=== PATIENT | female | born 2000 | race Caucasian/White ===

== ENCOUNTER 2020-12-07 14:04 | Day surgery (SDC) | payer OTHER ==
[~2020-12-07 14:04] MED LIST: ACETAMINOPHEN *IV* 1,000 MG IV ONE; LIDOCAINE 1% MDV 20ML VIAL SQ PRN; SCOPOLAMINE 1MG TRANSDERMAL PATCH TOP ONE; SCOPOLAMINE 1MG TRANSDERMAL PATCH TOP SCH
[2020-12-07] MEDS ORDERED: propofoL 200 MG/20 ML VIAL As Ordered ONE (14:21)
[2020-12-07] MEDS ORDERED: LIDOCAINE 2% 100MG/5ML SDV (FOR ANES.) As Ordered ONE (14:21)
[2020-12-07] MEDS ORDERED: fentaNYL 250 MCG/5 ML INJECTION (J3010) As Ordered ONE (14:21)
[2020-12-07] MEDS ORDERED: ROCURONIUM BROMIDE 50 MG/5 ML VIAL As Ordered ONE (14:21)
[2020-12-07] MEDS ORDERED: MIDAZOLAM INJ 2MG/2ML VIAL (J2250 PER 1MG) As Ordered ONE (14:22)
[2020-12-07] MEDS ORDERED: PROZ10CA7 PO (14:25)
[2020-12-07] MEDS ORDERED: VITMTA PO (14:25)
[2020-12-07 14:56] LABS: HEMATOCRIT 38.1 % (36.0-47.0); MEAN CORPUSCULAR HGB CONC 34.1 g/dl (32.0-36.5); PLATELET COUNT, AUTOMATED 258 10^3/uL (150-450); RED BLOOD COUNT 4.48 10^6/uL (4.00-5.40); WHITE BLOOD COUNT 6.9 10^3/uL (4.0-10.0)
[2020-12-07] MEDS ORDERED: LR 1,000 ML IV ONE (15:05)
[2020-12-07 15:22] LABS: BLOOD UREA NITROGEN 12 MG/DL (7-18); CALCIUM LEVEL 8.9 MG/DL (8.5-10.1); CARBON DIOXIDE LEVEL 29 MEQ/L (21-32); CHLORIDE LEVEL 106 MEQ/L (98-107); CREATININE FOR GFR 0.68 MG/DL (0.55-1.30); GLOMERULAR FILTRATION RATE > 60.0 (>60); GLUCOSE, FASTING 83 MG/DL (70-100); POTASSIUM SERUM 3.7 MEQ/L (3.5-5.1); SODIUM LEVEL 140 MEQ/L (136-145)
[2020-12-07] MEDS ORDERED: BUPIVACAINE HCL 0.25% 10ML VIAL As Ordered ONE (15:40)
[2020-12-07] MEDS ORDERED: ONDANSETRON 4MG/2ML VIAL As Ordered ONE (16:34)
[2020-12-07] MEDS ORDERED: ePHEDrine SULFATE 25 MG/5 ML(5MG/ML) SYRINGE As Ordered ONE (16:34)
[2020-12-07] MEDS ORDERED: METOCLOPRAMIDE INJ 10MG/2ML VIAL (J2765 PER 1) As Ordered ONE (16:34)
[2020-12-07] MEDS ORDERED: KETOROLAC 60MG 2ML VIAL As Ordered ONE (16:34)
[2020-12-07] MEDS ORDERED: dexameTHASONE 4 MG/ML 1ML VIAL (J1100 PER 1MG) As Ordered ONE (16:35)
[2020-12-07] MEDS ORDERED: SUGAMMADEX SODIUM 500 MG/5 ML VIAL (BRIDION) As Ordered ONE (16:37)
[2020-12-07] MEDS ORDERED: ACETAMINOPHEN 1000MG 100ML IV BTL (OFIRMEV) (J0131 PER 10MG) As Ordered ONE (16:39)
[2020-12-07] MEDS ORDERED: ONDANSETRON 4MG/2ML VIAL IV PRN (17:45)
[2020-12-07] MEDS ORDERED: LR 1,000 ML IV SCH (17:45)
[2020-12-07] MEDS ORDERED: oxyCODONE 5MG TAB PO PRN ×2 (17:45→17:50)
[2020-12-07] MEDS ORDERED: HYDROMORPHONE HCL 0.5 MG/ 0.5 ML SYRINGE (J1170 PER 1) IV PRN (17:45)
[2020-12-07] MEDS ORDERED: METOCLOPRAMIDE INJ 10MG/2ML VIAL (J2765 PER 1) IV PRN (17:45)
[2020-12-07] MEDS ORDERED: fentaNYL 100 MCG/2 ML INJECTION (J3010) IV PRN (17:45)
[2020-12-07] MEDS ORDERED: ACETAMINOPHEN 500 MG TAB PO SCH (18:00)
--- NOTE | 2020-12-07 18:10 | ROOPDOC ---
[facility] Report Of Operation Report of Operation DATE OF PROCEDURE: 12/07/20 PREPROCEDURE DIAGNOSES: suspected intermittent ovarian torsion POSTPROCEDURE DIAGNOSES: ruptured left hemorrhagic ovarian cyst, hemoperitoneum, suspected endometriosis, abdominal adhesive disease PROCEDURE PERFORMED: laparoscopic evacuation of hemoperitoneum, peritoneal biopsy SURGEON: Jose Silva DO LOG GETTER: Chiquis Buck DO ANESTHESIA: general ESTIMATED BLOOD LOSS: Approximately 20 mL. COMPLICATIONS: none REMARKS: none FINDINGS: left ruptured hemorrhagic ovarian cyst, approx 20cc of hemoperitoneum, suspected stage 1 endometriosis, abdominal adhesive disease SPECIMENS REMOVED: peritoneal biopsy PROCEDURE NOTE: The risks, benefits, and alternatives of the procedure were discussed and written consent obtained. IV tylenol and a scopolamine patch were administered pre-op. The patient was taken to the OR where she underwent general anesthesia. She was positioned in low lithotomy with her arms tucked. The abdomen and vagina were prepped and draped in a sterile fashion. A calvillo was placed in the bladder. A final time out was performed. A moistened sponge stick was placed in the vagina for uterine manipulation. 0.25% marcaine was injected into the infraumbilical fold and a 5mm incision was made. A 5mm port was placed via the direct technique. The opening pressure was 5 mmHg and there was no trauma below the entry site. An anatomy survey was performed; there was adhesions from the right and left sigmoid and appendix to the abdominal side wall. The appendix did not appear inflamed. The left ovary had a ruptured hemorrhagic cyst, the right ovary and bilateral fallopian tubes appeared normal. There was approx 20cc of hemoperitoneum which was evacuated. The uterus appeared normal. The posterior cul-de-sac and uterosacral ligaments had erythematous speckling suspicious for endometriosis. The area 2cm superior and medial to the bilateral ASISs were identified via transillumination and via direct visualization. 0.25% marcaine was injected and 5mm incisions made. 5mm ports were placed under direct visualization. A biopsy of the peritoneum was taken adjacent to the right uterosacral ligament and was hemostatic. The lower quadrant port sites were removed under direct visualization and the pneumoperitoneum was released. The remaining port was removed. The port sites were reapproximated with 3-0 monocryl and secured with dermabond. The calvillo and vaginal manipulator were removed. The sponge, lap, and needle counts were correct x2. There were no complications. The patient tolerated the procedure well. JOSE SILVA DO Dec 07, 2020 18:10
[2020-12-07 19:40] VITALS: BP 116/57
[2020-12-08] MEDS ORDERED: IBUPROFEN 800 MG TAB PO SCH
== END 2020-12-07 19:40 | disposition home or self-care (01) ==
LOC: M SDC 14:04 → EDBD 14:04 → M SDC 19:40
PROVIDERS: ATTEND Obstetrics & Gynecology
DX: N80.0 Endometriosis of uterus (principal); N83.202 Unspecified ovarian cyst, left side; K66.1 Hemoperitoneum; K66.0 Peritoneal adhesions (postprocedural) (postinfection); F32.9 Major depressive disorder, single episode, unspecified; Z79.899 Other long term (current) drug therapy
CPT/HCPCS: 36415; 49321; 49322; 80048; 81025; 85027; 86850; 86900; 86901; 88305; J0131; J1100; J1885; J2250; J2405; J2765; J3010; U0002

== ENCOUNTER 2020-12-29 19:45 | Emergency (ER) | payer OTHER ==
[~2020-12-29] VITALS: Ht 162.6 cm; Wt 63.6 kg
[~2020-12-29 19:45] MED LIST changes: -ACETAMINOPHEN *IV* 1,000 MG IV ONE; -LIDOCAINE 1% MDV 20ML VIAL SQ PRN; +PROZ10CA7 PO; -SCOPOLAMINE 1MG TRANSDERMAL PATCH TOP ONE; -SCOPOLAMINE 1MG TRANSDERMAL PATCH TOP SCH; +VITMTA PO
[2020-12-29 21:06] LABS: HEMATOCRIT 37.4 % (36.0-47.0); HEMOGLOBIN 12.9 g/dl (12.0-15.5); MEAN CORPUSCULAR HEMOGLOBIN 29.5 pg (27.0-33.0); MEAN CORPUSCULAR HGB CONC 34.5 g/dl (32.0-36.5); MEAN CORPUSCULAR VOLUME 85.4 fl (80.0-96.0); PLATELET COUNT, AUTOMATED 261 10^3/uL (150-450); RED BLOOD COUNT 4.38 10^6/uL (4.00-5.40); WHITE BLOOD COUNT 7.5 10^3/uL (4.0-10.0)
[2020-12-29 21:30] LABS: AMPHETAMINES LEVEL URINE NEGATIVE (NEGATIVE); BARBITURATES URINE NEGATIVE (NEGATIVE); BENZODIAZEPINES URINE NEGATIVE (NEGATIVE); CANNABINOIDS URINE NEGATIVE (NEGATIVE); COCAINE METABOLITE URINE NEGATIVE (NEGATIVE); METHADONE URINE NEGATIVE (NEGATIVE); OPIATES URINE NEGATIVE (NEGATIVE); PHENCYCLIDINE URINE NEGATIVE (NEGATIVE)
[2020-12-29 21:41] LABS: ACETAMINOPHEN LEVEL < 2.0 UG/ML (10.0-30.0); ALBUMIN 4.2 GM/DL (3.2-5.2); ALT/SGPT 17 U/L (12-78); BILIRUBIN,DIRECT 0.1 MG/DL (0.0-0.2); BILIRUBIN,TOTAL 0.4 MG/DL (0.2-1.0); BLOOD UREA NITROGEN 11 MG/DL (7-18); CALCIUM LEVEL 8.8 MG/DL (8.5-10.1); CARBON DIOXIDE LEVEL 26 MEQ/L (21-32); CHLORIDE LEVEL 108 MEQ/L (98-107); CREATININE FOR GFR 0.71 MG/DL (0.55-1.30); ETHYL ALCOHOL (ETHANOL) < 0.003 % (0.000-0.010); GLOMERULAR FILTRATION RATE > 60.0 (>60); GLUCOSE, FASTING 83 MG/DL (70-100); POTASSIUM SERUM 3.7 MEQ/L (3.5-5.1); SALICYLATE LEVEL < 1.7 MG/DL (5.0-30.0); SODIUM LEVEL 139 MEQ/L (136-145); TOTAL PROTEIN 7.7 GM/DL (6.4-8.2)
[2020-12-29 23:18] VITALS: BP 142/72
== END 2020-12-29 23:19 | disposition home or self-care (01) ==
LOC: M ED 19:45
DX: F33.9 Major depressive disorder, recurrent, unspecified (principal); Z79.899 Other long term (current) drug therapy

== ENCOUNTER 2021-08-16 10:46 | Inpatient (IN) | payer OTHER ==
[~2021-08-16] VITALS: Ht 162.6 cm; Wt 80.0 kg
[2021-08-16] VITALS (33 sets, daily range): BP systolic 118–155; BP diastolic 56–92
[2021-08-16] MEDS ORDERED: PRENTAB9 PO (11:18)
[2021-08-16] MEDS ORDERED: CARBOPROST TROMETHAMINE 250 MCG/ML AMP IM PRN (11:35)
[2021-08-16] MEDS ORDERED: TRANEXAMIC ACID INJection 1,000 MG in NS 100 ML IV PRN (11:35)
[2021-08-16] MEDS ORDERED: BETAMETHASONE SOLUSPAN 6MG/ML 5ML VIAL (J0702 PER 3MG) IM SCH (11:35)
[2021-08-16] MEDS ORDERED: LACTATED RINGER'S 1000 ML IV STA (11:35)
[2021-08-16] MEDS ORDERED: LIDOCAINE 1% MDV 20ML VIAL INFIL PRN (11:35)
[2021-08-16] MEDS ORDERED: OXYTOCIN DRIP 30 UNITS in IV 1 EA IV PRN ×4 (11:35)
[2021-08-16 12:01] LABS: HEMATOCRIT 33.8 % (36.0-47.0); HEMOGLOBIN 11.7 g/dl (12.0-15.5); MEAN CORPUSCULAR HEMOGLOBIN 30.2 pg (27.0-33.0); MEAN CORPUSCULAR HGB CONC 34.6 g/dl (32.0-36.5); MEAN CORPUSCULAR VOLUME 87.1 fl (80.0-96.0); PLATELET COUNT, AUTOMATED 250 10^3/uL (150-450); RED BLOOD COUNT 3.88 10^6/uL (4.00-5.40); WHITE BLOOD COUNT 10.2 10^3/uL (4.0-10.0)
[2021-08-16] MEDS ORDERED: NIFEdipine 10 MG CAP PO ONE ×2 (12:05→13:35)
[2021-08-16] MEDS ORDERED: DOCUSATE SODIUM 100MG CAPSULE PO PRN (12:05)
[2021-08-16] MEDS ORDERED: AZITHROMYCIN 250MG TABLET PO ONE (12:05)
[2021-08-16] MEDS ORDERED: AMPICILLIN SOD 2 GM in APPROPRIATE DILUENT 20 ML IV ONE (12:10)
[2021-08-16 12:31] LABS: ALT/SGPT 21 U/L (12-78); BILIRUBIN,TOTAL 0.7 MG/DL (0.2-1.0); CREATININE FOR GFR 0.56 MG/DL (0.55-1.30); GLOMERULAR FILTRATION RATE > 60.0 (>60); LDH LACTATE DEHYDROGENASE 139 U/L (84-246); URIC ACID 3.4 MG/DL (2.6-6.0)
[2021-08-16] MEDS ORDERED: AMPICILLIN SOD 2 GM in D5W MINI-BAG PLUS 100 ML IV ONE ×2 (12:35→18:00)
[2021-08-16] MEDS: LR 1,000 ML IV SCH ×3 (13:21→22:59)
[2021-08-16 16:31] LABS: TOTAL PROTEIN,RANDOM URINE 18.6 MG/DL (0.0-12.0)
[2021-08-16] MEDS ORDERED: NIFEdipine 10 MG CAP PO SCH ×2 (19:00→21:30)
[2021-08-16] MEDS ORDERED: REFRIGERATOR IV KEYS XX PRN (21:55)
[2021-08-16] MEDS ORDERED: EPIDURAL COMMENT XX SCH (21:55)
[2021-08-16] MEDS ORDERED: ePHEDrine SULFATE 25 MG/5 ML(5MG/ML) SYRINGE IV PRN (21:55)
[2021-08-16] MEDS ORDERED: NALOXONE INJ 0.4MG/1ML VIAL (J2310 PER 1MG) IV PRN (21:55)
[2021-08-16] MEDS ORDERED: LACTATED RINGER'S 1000 ML IV PRN (21:55)
[2021-08-16] MEDS ORDERED: EPIDURAL/PCA KEYS XX PRN (21:55)
[2021-08-16] MEDS ORDERED: ONDANSETRON 4MG/2ML VIAL IV PRN (21:55)
[2021-08-16] MEDS ORDERED: FENTANYL/ROPIVACAINE/NACL BAG 100 ML EPIDURAL SCH (21:55)
[2021-08-16] MEDS ORDERED: diphenhydrAMINE 50MG/ML VIAL (J1200) IV PRN (21:55)
[2021-08-16] MEDS ORDERED: FENTANYL 2MCG/ML ROPIVACAINE 0.2% IN 0.9% NACL 100ML IVBAG As Ordered ONE (21:57)
[2021-08-16] MEDS ORDERED: ACETAMINOPHEN 500 MG TAB PO ONE (22:05)
[2021-08-17] VITALS (15 sets, daily range): BP systolic 108–144; BP diastolic 53–87
[2021-08-17] MEDS ORDERED: AMPICILLIN SOD 2 GM in D5W MINI-BAG PLUS 100 ML IV SCH ×2
[2021-08-17] MEDS ORDERED: BETAMETHASONE SOLUSPAN 6MG/ML 5ML VIAL (J0702 PER 3MG) IM ONE (01:55)
[2021-08-17] MEDS ORDERED: IBUPROFEN 600MG TAB PO PRN (05:15)
[2021-08-17] MEDS ORDERED: LR 1,000 ML IV SCH (05:15)
[2021-08-17] MEDS ORDERED: ONDANSETRON 4MG/2ML VIAL IV PRN (05:15)
[2021-08-17] MEDS ORDERED: DIBUCAINE 1% OINTMENT 30GM TOP PRN (05:15)
[2021-08-17] MEDS ORDERED: ANUSOL HC CREAM 30GM TOP PRN (05:15)
[2021-08-17] MEDS ORDERED: RHOGAM 300 MCG (1500 IU) INJ (J2790) IM SCH (05:15)
[2021-08-17] MEDS ORDERED: ACETAMINOPHEN 500 MG TAB PO PRN (05:15)
[2021-08-17] MEDS ORDERED: METHYLERGONOVINE MALEATE 0.2 MG TAB PO PRN (05:15)
[2021-08-17] MEDS ORDERED: MEASLES,MUMPS,RUBELLA VACCINE INJ (MMR-II) (90707) SC SCH (05:15)
[2021-08-17] MEDS ORDERED: OXYTOCIN DRIP 30 UNITS in IV 1 EA IV SCH ×4 (05:15)
[2021-08-17] MEDS ORDERED: ACETAMINOPHEN TAB 650MG DOSE (2X325MG) PO PRN (05:15)
[2021-08-17] MEDS: DOCUSATE SODIUM 100MG CAPSULE PO SCH ×2 (07:41→20:12)
[2021-08-17] MEDS: PRENATAL VITAMINS CHEWABLE TABLET PO SCH (07:41)
[2021-08-17] MEDS ORDERED: PRENATAL VITAMINS CHEWABLE TABLET PO SCH (09:00)
[2021-08-17] MEDS: IBUPROFEN 800 MG TAB PO PRN (16:41)
[2021-08-18] MEDS: IBUPROFEN 800 MG TAB PO PRN (01:14)
[2021-08-18 06:00] VITALS: BP 130/62
[2021-08-18] MEDS ORDERED: BOOSTRIX/ADACEL VACCINE (DIPHTH/PERTUSS/ACELL/TETANUS) 0.5ML SYR IM ONE (09:00)
[2021-08-18] MEDS: DOCUSATE SODIUM 100MG CAPSULE PO SCH ×2 (10:46→22:32)
[2021-08-18] MEDS: PRENATAL VITAMINS CHEWABLE TABLET PO SCH (10:46)
[2021-08-18 18:00] VITALS: BP 124/60
[2021-08-19 06:00] VITALS: BP 126/62
[2021-08-19] MEDS ORDERED: IBUP80TA PO (09:08)
[2021-08-19] MEDS ORDERED: ACET-683 PO (09:08)
[2021-08-19] MEDS ORDERED: COLA100C5 PO (09:08)
[2021-08-19] MEDS: DOCUSATE SODIUM 100MG CAPSULE PO SCH (09:56)
[2021-08-19] MEDS: PRENATAL VITAMINS CHEWABLE TABLET PO SCH (09:56)
== END 2021-08-19 12:40 | disposition home or self-care (01) | DRG 807 ==
LOC: M LDO 10:46 → M LDI 11:35 → M OBS 08-17 07:30
PROVIDERS: ADMIT Advanced Practice Midwife; ATTEND Obstetrics & Gynecology
PROC: 10E0XZZ Delivery of Products of Conception, External Approach (ICD-10-PCS; principal; 2021-08-17)
DX: O42.013 Preterm premature rupture of membranes, onset of labor within 24 hours of rupture, third trimester (principal); Z37.0 Single live birth; Z3A.32 32 weeks gestation of pregnancy; O99.824 Streptococcus B carrier state complicating childbirth; O64.5XX0 Obstructed labor due to compound presentation, not applicable or unspecified